=== PATIENT | female | born 1970 | race African-American/Black ===

== ENCOUNTER 2024-02-22 02:23 | Emergency (ER) | payer OTHER ==
[2024-02-22 02:52] VITALS: RESP 20; TEMP 97.7; BMI 42.7
[2024-02-22] MEDS ORDERED: ONDANSETRON *ODT* 4 MG TABLET ONE (04:38)
[2024-02-22] MEDS: FAMOTIDINE 20 MG/50 ML IVPB 20 MG/50 ML MG IVPB ONE (05:14)
[2024-02-22 06:01] LABS: POTASSIUM 4.8 mmol/L (3.5-5.1)
[2024-02-22 06:03] LABS: CALCIUM 11.1 mg/dL (8.5-10.1)
[2024-02-22 06:07] LABS: CREATININE 1.5 mg/dL (0.55-1.3)
[2024-02-22 06:08] LABS: BILIRUBIN,TOTAL 0.4 mg/dL (0.2-1); TOT PROT 8.4 g/dl (6.4-8.2)
[2024-02-22 06:27] LABS: BASO % 0.5 % (0-2.0); EOS % 0.4 % (0-4.5); HEMATOCRIT 36.4 % (32.4-45.2); HEMOGLOBIN 11.8 GM/dL (10.7-15.3); MCH 24.8 pg (25.7-33.7); MCHC 32.3 g/dl (32.0-36.0); MEAN CELL VOLUME 76.9 fl (80-96); MEAN PLT VOLUME 7.9 fl (7.5-11.1); MONO % 4.9 % (3.8-10.2); NEUT % 79.2 % (42.8-82.8); PLATELET COUNT 402 10^3/uL (134-434); RBC 4.74 M/mm3 (3.60-5.2); RDW 16.4 % (11.6-15.6); WHITE BLOOD COUNT 10.5 K/mm3 (4.0-10.0)
[2024-02-22 06:29] LABS: PH,URINE 5.5 (5.0-8.0); URINE APPEARANCE CLEAR; URINE BILIRUBIN NEGATIVE (NEGATIVE); URINE COLOR YELLOW; URINE GLUCOSE (UA) NEGATIVE (NEGATIVE); URINE KETONE NEGATIVE (NEGATIVE); URINE LEUK ESTERASE NEGATIVE (NEGATIVE); URINE NITRITE NEGATIVE (NEGATIVE); URINE PROTEIN NEGATIVE (NEGATIVE); URINE UROBILINOGEN 0.2 mg/dL (0.2-1.0)
[2024-02-22] MEDS: SODIUM CHLORIDE 0.9% 500 ML INFUS.BAG IV ONE (06:51)
[2024-02-22 06:53] LABS: HIV INTERPRETATION NEGATIVE (NEGATIVE)
[2024-02-22 10:12] VITALS: BP 127/84; PULSE 81
== END 2024-02-22 11:09 | disposition home or self-care (01) ==
LOC: JER 02:23
PROC: 3E033GC Introduction of Other Therapeutic Substance into Peripheral Vein, Percutaneous Approach (ICD-10-PCS; principal; 2024-02-22)
DX: N30.90 Cystitis, unspecified without hematuria (principal); R53.1 Weakness; R10.9 Unspecified abdominal pain; R11.2 Nausea with vomiting, unspecified; R68.83 Chills (without fever); R07.9 Chest pain, unspecified
CPT/HCPCS: 36415; 71045-TC-FY; 74176-TC; 80053; 81003; 84484; 85025; 86803; 87086; 87389; 93005; 93010; 96365; 99285-25